=== PATIENT | female | born 1960 | race Caucasian/White ===

== ENCOUNTER → 2017-12-25 | Outpatient (CLI) | payer OTHER ==
[~2017-12-25] VITALS: Ht 157.5 cm; Wt 80.7 kg
[~2017-12-25] MED LIST: FLUVOXAMINE MA100 MG PO; LIPITOR 20 MG T20 M1 PO; SYNTHROID75 MCG PO; URSODIOL250 MG PO
--- NOTE | ~2017-12-25 | P ---
[facility] [place] [address] PROCEDURE REPORT Name: CARLOS ANDINO Room #: [facility]#: [id number] Admission: 12/25/17 Attend Phys: Riley Ledesma MD Discharge: Date of : 60 Report #: [id number] THIS REPORT FOR: //name// CC: DEYSI Ledesma DATE OF SERVICE: 12/25/2017 BRIEF HISTORY: The patient is a 57-year-old woman with history of sclerosing cholangitis. She is not known to have a history of inflammatory bowel disease. In addition, there is a family history of colon cancer in an uncle when he was in his early 50s. PREOPERATIVE DIAGNOSIS: Primary sclerosing cholangitis. POSTOPERATIVE DIAGNOSIS: Small internal hemorrhoids. MEDICATIONS: Deep sedation with propofol per anesthesia. SPECIMEN: None. ESTIMATED BLOOD LOSS: None. PROCEDURE: Colonoscopy to cecum and terminal ileum. FINDINGS: Prior to propofol sedation, procedure of colonoscopy discussed with the patient as well as potential risks and its complications. She indicates she understands and desires to proceed. DESCRIPTION OF PROCEDURE: With the patient in left lateral decubitus position, digital examination was completed, which revealed no abnormalities. Subsequently, an Olympus video colonoscope was introduced in the rectum, advanced under direct vision to the cecum. The cecum was identified by the ileocecal valve and the appendiceal orifice. I was able to visualize the distal segment of the terminal ileum, which was inspected and noted to be unremarkable. At that point, the scope was slowly withdrawn and careful circumferential views obtained. Upon slow withdrawal of the scope, including retroflexing the ascending colon, the prep was noted to be excellent. The mucosa was within normal limits, normal vascular pattern, normal light reflex. As we withdrew the scope, no neoplastic lesions were seen. In addition, there was no endoscopic evidence of inflammatory bowel disease. The mucosa throughout the entire colon was normal. The scope was withdrawn into the rectum. Upon retroflexion, small hemorrhoids were seen. No other abnormalities were identified. Scope was withdrawn. The patient tolerated the procedure well. [address] [id number] PROCEDURE REPORT Name: CARLOS ANDINO Room #: [facility]#: [id number] Admission: 12/25/17 Attend Phys: Riley Ledesma MD Discharge: Date of : 60 Report #: [id number] CONDITION OF THE PATIENT UPON DISCHARGE: Following procedure, the patient was drowsy, arousable, conversant and will be discharged home when fully ambulatory. INSTRUCTIONS TO THE PATIENT AND FAMILY AT THE TIME OF DISCHARGE: No neoplastic lesions were seen. No inflammatory changes were seen. Suggest followup colon exam in 5 years. She will return to the care of Dr. Deysi Workman and return to see me as needed. Last colonoscopy was 7 years ago. Withdrawal time from the cecum was 10 minutes 36 seconds. <ELECTRONICALLY SIGNED> By: Riley Ledesma MD 01/05/18 1044 [id number] Riley Ledesma MD /nt
== END | disposition home or self-care (01) ==
LOC: GI 07:03
DX: K64.8 Other hemorrhoids (principal); Z80.0 Family history of malignant neoplasm of digestive organs; E03.9 Hypothyroidism, unspecified; E78.5 Hyperlipidemia, unspecified; K75.9 Inflammatory liver disease, unspecified; Z90.49 Acquired absence of other specified parts of digestive tract; Z98.890 Other specified postprocedural states; Z88.0 Allergy status to penicillin; Z88.2 Allergy status to sulfonamides; Z79.899 Other long term (current) drug therapy
CPT/HCPCS: 62110; 62900